=== PATIENT | female | born 1975 | race Two or more races ===

== ENCOUNTER → 2018-02-08 15:36 | Outpatient (CLI) | payer BC, SELFPAY ==
[2018-02-08 18:37] LABS: Basophils % 0.4 % (0.1-2.0); Eosinophils # 0.1 K/mm3 (0.0-0.4); Eosinophils % 1.8 % (0.1-12.0); Hematocrit 41.1 % (37.0-47.0); Lymphocytes # 2.1 K/mm3 (0.7-4.5); Lymphocytes % 27.5 K/mm3 (10-50); Mean Corpuscular HGB Conc 33.9 g/dL (31.8-35.4); Mean Corpuscular Hemoglobin 30.2 pg (27.0-31.2); Mean Corpuscular Volume 89.1 fl (81-99); Mean Platelet Volume 8.6 fl (7.4-10.4); Monocytes # 0.4 K/mm3 (0.1-1.0); Monocytes % 4.5 % (1.7-9.3); Neutrophils % 65.7 % (37.0-80.0); Platelet Count 244 K/mm3 (142-424); Red Blood Count 4.62 M/mm3 (4.20-5.40); Red Cell Distribution Width 12.6 % (11.5-17.5); White Blood Count 7.6 K/mm3 (4.8-10.8)
[2018-02-08 18:57] LABS: Alanine Aminotransferase 32 U/L (12-78); Albumin Level 4.2 gm/dL (3.4-5.0); Albumin/Globulin Ratio 1.4 (1.1-1.8); Alkaline Phosphatase 75 U/L (46-116); Anion Gap 13.7 mEq/L (5-15); Aspartate Amino Transferase 21 U/L (15-37); Bilirubin,Total 0.9 mg/dL (0.2-1.0); Blood Urea Nitrogen 16 mg/dL (7-18); Calcium 9.7 mg/dL (8.5-10.1); Carbon Dioxide 29 mmol/L (21.0-32.0); Chloride 106 mmol/L (98-107); Creatinine,Serum 0.95 mg/dL (0.55-1.02); Estimated Glomerular Filt Rate 65 ml/min (>60); GFR (African American) 78 ML/MIN (>60); Globulin 2.9 gm/dl (1.3-3.2); Glucose 88 mg/dL (74-106); Potassium 4.7 mmoL/L (3.5-5.1); Sodium 144 mmol/L (136-145); T4 (Thyroxine) 7.9 ug/dl (4.7-13.3); Thyroid Stimulating Hormone 3.05 uIU/ml (0.358-3.740); Total Protein,Serum 7.1 gm/dL (6.4-8.2)
[2018-02-13 06:13] LABS: FSH 37.6 mIU/mL (.); LH 19.6 mIU/mL (.); Progesterone <0.1 ng/mL (.)
[2018-02-13 06:15] LABS: Vitamin D 25 Hydroxy 38.9 ng/mL (30.0-100.0)
[2018-02-13 06:17] LABS: Estrogen 128 pg/mL (.)
== END ==
PROVIDERS: Visit Provider Emergency Medicine
DX: R53.83 Other fatigue (principal); Z79.899 Other long term (current) drug therapy
CPT/HCPCS: 80053; 82652; 82672; 83001; 83002; 84144; 84436; 84443; 85025

== ENCOUNTER 2020-09-23 12:31 | Emergency (ER) | payer BC, SELFPAY ==
[2020-09-23 12:45] VITALS: BP 127/78; PULSE 77; RESP 20; TEMP 37; O2SAT 98; BMI 33.4
--- NOTE | 2020-09-23 13:09 | HMH.EDUTC ---
[facility] – [place] Disposition Clinical Impression: Exposure to COVID-19 virus Disposition: Home, Self-Care Condition on Discharge: Good Instructions: Preventing the Spread of Coronavirus Discharge Instructions Additional Instructions: Drink plenty of fluids. Take tylenol for pain or fever. Return if you begin to have difficulty breathing. Follow up with your regular doctor. GO TO THE ER FOR ANY WORSENING SYMPTOMS Referrals: Iman Bond [Primary Care Provider] - Time of Disposition: 13:12 Medical Decision Making - Medical Records Medical records reviewed: No: I reviewed the patient's medical records. - Dennys Inquiry Pt receiving controlled substance: No Vital Signs: 09/23/20 12:45 Temperature 98.6 F Temperature Source Oral Pulse Rate [Left Brachial] 77 Respiratory Rate 20 Blood Pressure [Left Arm] 127/78 Blood Pressure Mean [Left Arm] 94 Blood Pressure Source [Left Arm] Automatic Cuff Blood Pressure Position [Left Arm] Sitting 02 Sat by Pulse Oximetry 98 Oxygen Delivery Method Room Air Orders (Tests/Meds): ORDERS Category Date Time Status Covid-19 Nasal PCR Sendout Carlo Routine Lab 09/23/20 12:50 Received [facility] [place] HPI - General Stated complaint: covid 19 test for work Time Seen by Provider: 09/23/20 13:09 Mode of Arrival: Ambulatory Source of Information: Patient Limitations: No Limitations Description of Symptoms (Recalled from Triage Doc. by RN): PATIENT REQUESTING COVID TEST FOR WORK. DENIES EXPOSURE OR SYMPTOM HEENT Symptoms (Recalled from RN notes): No Resp Symptoms (Recalled from RN notes): No Skin Symptoms (Recalled from RN notes): No MS Symptoms (Recalled from RN notes): No Functional Status (Recalled from RN notes): WNL - History of Present Illness Provider Complaint: She is starting a new job. She needs a negative covid test to be allowed to start. - Related Data Previous Rx's Medication Instructions Recorded nadolol 80 mg tablet 80 mg PO QDAY #30 tab 10/19/17 lisinopril 20 1 tab PO QDAY #90 tab 04/09/18 mg-hydrochlorothiazide 25 mg tablet tizanidine 4 mg tablet 4 mg PO Q8H #90 tab 04/09/18 Allergies Allergy/AdvReac Type Severity Reaction Status Date / Time tramadol Allergy Intermediate cannot Verified 04/09/18 15:36 urinate amitriptyline Allergy Mild confuson Verified 04/09/18 15:36 pregabalin [From Lyrica] Allergy Confusion Verified 04/09/18 15:36 red dye Allergy Hives Verified 04/09/18 15:36 ciprofloxacin [From Cipro] AdvReac Intermediate Hives Verified 04/09/18 15:36 - Worker's Comp Is this a Worker's Comp case?: No H History - Hepatitis A Screen Drug use history?: No High risk sexual behaviors?: No History of sexually transmitted infection?: No Currently employed?: No Childcare worker?: No Do you have indoor plumbing?: Yes Do you have electricity?: Yes Attestation statement:: This patient has been screened for Hepatitis A risk factors. I have reviewed the patient's past medical history: Yes Medical History: Reports:: Diabetes Mellitus Type 2, Gastroesophageal Reflux Disease(GERD), Hypertension, Kidney Stones Other Medical History: Reports: Arthritis, Fibromyalgia, Thyroid Disease Laterality Cases: Left: ACL Repair Other Surgeries: Yes: Dilation and Curettage Amputation: No Fractures: No Comment: c4-c5 discectomy, thyroglossal duct cyst removal - Social History Smoking Status: Former smoker Alcohol Intake: never Substance Use Type: denies use Occupational Status: other Family Hx:: Hypertension, Cancer ROS Obtained: Yes All systems reviewed & no additional complaints - Constitutional Constitutional: Reports system reviewed and no additional complaints, except as docu - Eyes Eyes: Reports system reviewed and no additional complaints, except as docu - ENT Ears, Nose, Mouth, and Throat: Reports system reviewed and no additional complaints, except as docu - Cardiovascular Cardiovascular: Reports system reviewed an
[2020-09-23 13:13] VITALS: BP 127/78; PULSE 77; RESP 20; TEMP 37; O2SAT 98
[2020-09-24 11:48] LABS: Covid-19 Nasal PCR Sendout Lex Not Detected
== END 2020-09-23 13:15 | disposition home or self-care (01) ==
PROVIDERS: Emergency Provider Nurse Practitioner Family; PCP Emergency Medicine
DX: Z20.828 Contact with and (suspected) exposure to other viral communicable diseases (principal); I10 Essential (primary) hypertension; E11.9 Type 2 diabetes mellitus without complications; K21.9 Gastro-esophageal reflux disease without esophagitis; M79.7 Fibromyalgia; E03.9 Hypothyroidism, unspecified; Z87.442 Personal history of urinary calculi; Z87.891 Personal history of nicotine dependence; Z79.899 Other long term (current) drug therapy; Z88.8 Allergy status to other drugs, medicaments and biological substances
CPT/HCPCS: 99201; U0004

== ENCOUNTER 2020-11-12 09:08 | Emergency (ER) | payer BC, SELFPAY ==
[2020-11-12 09:10] VITALS: BP 141/85; PULSE 66; RESP 14; TEMP 37; O2SAT 96; BMI 31.3
--- NOTE | 2020-11-12 09:41 | HMH.EDUTC ---
[facility] Clinical Impression: Bronchitis, Exposure to COVID-19 virus Disposition: Home, Self-Care Condition on Discharge: Good Instructions: DI for COVID-19 (Suspected or Confirmed ), Preventing the Spread of Coronavirus Discharge Instructions Additional Instructions: Drink plenty of fluids. Take tylenol for pain or fever. Return if you begin to have difficulty breathing. Follow up with your regular doctor. GO TO THE ER FOR ANY WORSENING SYMPTOMS Prescriptions: Albuterol Sulfate [Albuterol Sulfate Hfa] 2 puffs IH Q6HP PRN 30 Days #1 hfa.aer.ad PRN Reason: Shortness Of Breath Transmission Status: Pending to [facility] Benzonatate [Tessalon Perle 100mg Cap] 100 mg PO TIDP PRN #30 cap PRN Reason: Cough Transmission Status: Received by [facility] Azithromycin [Z-Joey 250mg Tab*] 250 mg PO UD DOSE PK #6 tab Transmission Status: Received by [facility] Referrals: Iman Bond [Primary Care Provider] - Forms: Work/School Release Time of Disposition: 09:43 Medical Decision Making - Medical Records Medical records reviewed: No: I reviewed the patient's medical records. - Dennys Inquiry Pt receiving controlled substance: No Vital Signs: 11/12/20 09:10 Temperature 98.6 F Temperature Source Oral Pulse Rate [Right Brachial] 66 Respiratory Rate 14 Blood Pressure [Right Arm] 141/85 H Blood Pressure Mean [Right Arm] 103 Blood Pressure Source [Right Arm] Automatic Cuff Blood Pressure Position [Right Arm] Sitting 02 Sat by Pulse Oximetry 96 Oxygen Delivery Method Room Air Orders (Tests/Meds): ORDERS Category Date Time Status Covid-19 Nasal [facility] Routine Lab 11/12/20 09:20 [place] [facility] [place] - General Stated complaint: covid exposure Time Seen by Provider: 11/12/20 09:15 Mode of Arrival: Ambulatory Source of Information: Patient Limitations: No Limitations Description of Symptoms (Recalled from Triage Doc. by RN): COVID TEST D/T EXPOSURE. C/O COUGH, BODY ACHES AND HEADACHE HEENT Symptoms (Recalled from RN notes): Yes Resp Symptoms (Recalled from RN notes): Yes Skin Symptoms (Recalled from RN notes): No MS Symptoms (Recalled from RN notes): Yes Functional Status (Recalled from RN notes): WNL - History of Present Illness Provider Complaint: She states that for the past week or so she has had a cough, chilling, low grade fever and sinus congestion. Her work wanted her to be tested for covid-19. - Related Data Previous Rx's Medication Instructions Recorded nadolol 80 mg tablet 80 mg PO QDAY #30 tab 10/19/17 lisinopril 20 1 tab PO QDAY #90 tab 04/09/18 mg-hydrochlorothiazide 25 mg tablet tizanidine 4 mg tablet 4 mg PO Q8H #90 tab 04/09/18 Albuterol Sulfate [Albuterol 2 puffs IH Q6HP PRN 30 Days #1 11/12/20 Sulfate Hfa] hfa.aer.ad Azithromycin [Z-Joey 250mg Tab*] 250 mg PO UD DOSE PK #6 tab 11/12/20 Benzonatate [Tessalon Perle 100mg 100 mg PO TIDP PRN #30 cap 11/12/20 Cap] Allergies Allergy/AdvReac Type Severity Reaction Status Date / Time tramadol Allergy Intermediate cannot Verified 04/09/18 15:36 urinate amitriptyline Allergy Mild confuson Verified 04/09/18 15:36 pregabalin [From Lyrica] Allergy Confusion Verified 04/09/18 15:36 red dye Allergy Hives Verified 04/09/18 15:36 ciprofloxacin [From Cipro] AdvReac Intermediate Hives Verified 04/09/18 15:36 - Worker's Comp Is this a Worker's Comp case?: No H History - Hepatitis A Screen Drug use history?: No High risk sexual behaviors?: No History of sexually transmitted infection?: No Currently employed?: No Childcare worker?: No Do you have indoor plumbing?: Yes Do you have electricity?: Yes Attestation statement:: This patient has been screened for Hepatitis A risk factors. I have reviewed the patient's past medical history: Yes Medical History: Reports:: Diabetes Mellitus Type 2, Gastroesophageal Reflux Disease(GERD), Hypertension, Kidney Stones
[2020-11-12 09:48] VITALS: BP 141/85; PULSE 66; RESP 14; TEMP 37; O2SAT 96
--- NOTE | 2020-11-12 13:50 | PC.NURSE ---
patient notified of positive covid results
== END 2020-11-12 09:50 | disposition home or self-care (01) ==
PROVIDERS: Emergency Provider Nurse Practitioner Family; PCP Emergency Medicine
DX: U07.1 COVID-19 (principal); I10 Essential (primary) hypertension; E11.9 Type 2 diabetes mellitus without complications; K21.9 Gastro-esophageal reflux disease without esophagitis; M79.7 Fibromyalgia; Z79.899 Other long term (current) drug therapy
CPT/HCPCS: 99202; G0463; U0003

== ENCOUNTER 2020-11-23 09:33 | Emergency (ER) | payer BC, SELFPAY ==
[2020-11-23 09:52] VITALS: BP 160/92; PULSE 82; RESP 20; TEMP 37.4; O2SAT 98; BMI 30.4
--- NOTE | 2020-11-23 09:56 | XR_ITS ---
PROCEDURE: XR CHEST 2V CLINICAL HISTORY: possible pneumonia. covid positive nov 14 COMPARISON: No exams were available for comparison FINDINGS: The cardiomediastinal silhouette and pulmonary vascularity are within normal limits. The lungs are clear without infiltrates, suspicious nodules, or pleural effusions. No acute bony abnormalities. There is a calcified granuloma in the right mid lung. Bone plate overlies the lower cervical spine. IMPRESSION: No acute findings. Dictated by: Reinaldo Mccray MD 11/23/2020 11:37 Reinaldo Mccray MD in [place] 11/23/2020 11:37
--- NOTE | 2020-11-23 10:10 | HMH.EDUTC ---
[facility] – [place] Dis[place] Clinical Impression: COVID-19, Viral syndrome, Abrasion, left knee, initial encounter Acute bronchitis Qualifiers: Bronchitis organism: unspecified organism Qualified Code(s): J20.9 - Acute bronchitis, unspecified Disposition: Home, Self-Care Condition on Discharge: Good Instructions: DI for Acute Bronchitis, DI for Abrasion, Preventing the Spread of Coronavirus Discharge Instructions Additional Instructions: Drink plenty of fluids. Take tylenol for pain or fever. Return if you begin to have difficulty breathing. Follow up with your regular doctor. GO TO THE ER FOR ANY WORSENING SYMPTOMS Apply the topical antibiotic ointment (mupirocin) as directed to your knee. Prescriptions: Mupirocin [Bactroban 2% Ointment 22gm tube] 1 applicatio TP TID 7 Days #1 tube Transmission Status: Received by [facility] Cefdinir [Omnicef 300mg Capsule] 300 mg PO BID #20 cap Transmission Status: Received by [facility] predniSONE [Prednisone 20mg Tab] 20 mg PO BID 4 Days #8 tab Transmission Status: Received by [facility] Referrals: Iman Bond [Primary Care Provider] - Forms: Work/School Release Time of Disposition: 10:31 Medical Decision Making - Medical Records Medical records reviewed: No: I reviewed the patient's medical records. - Dennys Inquiry Pt receiving controlled substance: No Vital Signs: 11/23/20 09:52 11/23/20 10:48 Temperature 99.4 F 99.4 F Temperature Source Oral Oral Pulse Rate 82 Pulse Rate [Right] 82 Respiratory Rate 20 16 Blood Pressure 160/92 H Blood Pressure [Right Arm] 160/92 H Blood Pressure Mean [Right Arm] 114 Blood Pressure Source Automatic Cuff Blood Pressure Source [Right Arm] Automatic Cuff Blood Pressure Position Sitting Blood Pressure Position [Right Arm] Sitting 02 Sat by Pulse Oximetry 98 Oxygen Delivery Method Room Air [facility] [place] HPI - General Stated complaint: Covid test to go to work Time Seen by Provider: 11/23/20 09:55 Mode of Arrival: Ambulatory Limitations: No Limitations Description of Symptoms (Recalled from Triage Doc. by RN): pt tested positive for covid on . pt is having a productive cough with yellow sputum, a sore throat, fever, diarrhea. HEENT Symptoms (Recalled from RN notes): Yes (sore throat) Resp Symptoms (Recalled from RN notes): Yes (soa, productive cough with yello sputum) Skin Symptoms (Recalled from RN notes): No MS Symptoms (Recalled from RN notes): No Functional Status (Recalled from RN notes): na - History of Present Illness Provider Complaint: She was diagnosed with Covid-19 on Nov 14. She had been feeling better, but since yesterday she has had a worsening cough and she has began feeling bad again. She fell on the ice 3 days ago. She states that she has an abrasion on her left knee that she is worried about getting infected. She states that her tetanus immunization is up to date. She denies additional injury. - Related Data Previous Rx's Medication Instructions Recorded nadolol 80 mg tablet 80 mg PO QDAY #30 tab 10/19/17 lisinopril 20 1 tab PO QDAY #90 tab 04/09/18 mg-hydrochlorothiazide 25 mg tablet tizanidine 4 mg tablet 4 mg PO Q8H #90 tab 04/09/18 Albuterol Sulfate [Albuterol 2 puffs IH Q6HP PRN 30 Days #1 11/12/20 Sulfate Hfa] hfa.aer.ad Azithromycin [Z-Joey 250mg Tab*] 250 mg PO UD DOSE PK #6 tab 11/12/20 Benzonatate [Tessalon Perle 100mg 100 mg PO TIDP PRN #30 cap 11/12/20 Cap] Cefdinir [Omnicef 300mg Capsule] 300 mg PO BID #20 cap 11/23/20 Mupirocin [Bactroban 2% Ointment 1 applicatio TP TID 7 Days #1 tube 11/23/20 22gm tube] predniSONE [Prednisone 20mg 20 mg PO BID 4 Days #8 tab 11/23/20 Tab] Allergies Allergy/AdvReac Type Severity Reaction Status Date / Time tramadol Allergy Intermediate cannot Verified 11/23/20 09:36 urinate amitriptyline Allergy Mild confuson Verified 11/23/20 09:36 pregabalin [Fro
[2020-11-23 10:48] VITALS: BP 160/92; PULSE 82; RESP 16; TEMP 37.4
== END 2020-11-23 10:50 | disposition home or self-care (01) ==
PROVIDERS: Emergency Provider Nurse Practitioner Family; PCP Emergency Medicine
DX: Z86.16 Personal history of COVID-19 (principal); B34.9 Viral infection, unspecified; J20.9 Acute bronchitis, unspecified; E11.9 Type 2 diabetes mellitus without complications; K21.9 Gastro-esophageal reflux disease without esophagitis; I10 Essential (primary) hypertension; M79.7 Fibromyalgia; Z79.899 Other long term (current) drug therapy; F17.210 Nicotine dependence, cigarettes, uncomplicated; Z88.8 Allergy status to other drugs, medicaments and biological substances; S80.212A Abrasion, left knee, initial encounter; W00.0XXA Fall on same level due to ice and snow, initial encounter
CPT/HCPCS: 71046; 99202; G0463; U0003